=== PATIENT | female | born 1985 | race Caucasian/White ===

== ENCOUNTER 2016-09-18 22:38 | Emergency (ER) | payer SELFPAY ==
--- NOTE | ~2016-09-18 | ER ---
PATIENT'S NAME: LUDWIN NOWAK AGE: 30 Y [address] ROOM: [place] [address] LOCATION: [facility] ADMIT DATE: 09/18/2016 ER/Outpatient Report DISCHARGE DATE: 09/19/2016 FAMILY PHYSICIAN: Jad Mar MD ATTENDING PHYSICIAN: Cassandra Gonzales HISTORY OF PRESENT ILLNESS: A 30-year-old female who presents today with a chief complaint of nausea, vomiting, and diarrhea. It started this morning at 8 a.m., which is approximately 15 hours ago. She has had 5 episodes of vomiting, nonbloody, nonbilious, and 3 episodes of diarrhea, nonbloody, no mucus. She has some abdominal cramping in her like just above the umbilicus, but she says it comes and goes, feels like someone is punching her, and then it lets off, so it is coming and going. Denies eating any bad food. No recent exposure to sick people. No drinking contaminated water. No antibiotic use. She has had something like this about 3 weeks ago and she went to [facility] for this and says that she was not given anything for nausea. Currently, it is dry heaving at this time. PAST MEDICAL HISTORY: Includes asthma and obesity. PAST SURGICAL HISTORY: Includes tubal ligation, cholecystectomy, and C-sections. Last menstrual period was 09/14/2016. SOCIAL HISTORY: She smokes 4 to 5 cigarettes a day. Denies drug or alcohol use. MEDICATIONS: Please see med list. ALLERGIES: NONE. REVIEW OF SYSTEMS: Reviewed by me and negative with the exception of those discussed in HPI. PHYSICAL EXAMINATION: GENERAL: The patient is 5 feet, 4 inches, she weighs 89.6, blood pressure is 134/72, heart rate 84, respiratory rate 16, temp is 98, and O2 sats are 99% on room air. GENERAL: The patient is not in any acute distress. She looks mildly uncomfortable, but she is nontoxic, she has an emesis bag and is sort of burping, dry heaving at this time, but not actually vomiting. PATIENT'S NAME: LUDWIN NOWAK AGE: 30 Y [address] ROOM: [place] [address] LOCATION: [facility] ADMIT DATE: 09/18/2016 ER/Outpatient Report DISCHARGE DATE: 09/19/2016 FAMILY PHYSICIAN: Jad Mar MD ATTENDING PHYSICIAN: Cassandra Gonzales HEENT: Her pupils are equal and reactive to light. She is not lethargic. She answers all questions appropriately. She did walk into the ER. GCS is 15. HEART: Heart rate is regular rate and rhythm. She is not tachycardic. LUNGS: Lungs sounds are clear. ABDOMEN: She is obese, but she has no tenderness, no epigastric tenderness, no right upper quadrant tenderness, no right lower quadrant tenderness, no left lower quadrant tenderness, no left upper quadrant tenderness, no suprapubic tenderness, no epigastric tenderness, and no CVA tenderness bilaterally. She has no rebound or guarding. Slightly hyperactive bowel sounds though. SKIN: Warm, dry, and intact. EMERGENCY ROOM COURSE: We gave her Zofran, which improved her symptoms dramatically, she has no further vomiting and no crampy feeling in her belly at this time. We did check some labs. Procalcitonin is less than 0.05. She is not . CBC shows a white count of 7.2, H and H is 14.4/39.6, and platelets are 208. CMS showed sodium 142, potassium 3.5, chloride 111, CO2 24, anion gap is 10.5, glucose is 103, BUN 16, creatinine is 1.1, alk phos is 56, AST is 19, ALT is 24, GFR is 59, lipase is 137, and lactate is 1.9. Discussed this with the patient. She feels a lot better. We will send her home with a script for some Zofran. I told her to eat sort of a bland diet, try and stay hydrated, push fluids, and follow up with her doctor as needed. IMPRESSION: Nausea, vomiting, and diarrhea. MD STEWART KNIGHT/eliasl /[id number] d: 09/19/16421 t: 09/20/161953, OUTPATIENT REPORT
[2016-09-18 23:49] LABS: BASOPHIL % 0.6 %; EOSINOPHIL # 0.2 K/uL (0.0-0.5); EOSINOPHIL % 3.4 %; HEMATOCRIT 39.6 % (33.0-46.0); HEMOGLOBIN 14.4 g/dL (11.0-15.0); IMMATURE GRANULOCYTE % 0.3 %; LYMPHOCYTE # 2.2 K/uL (0.8-4.0); MCH 31.2 pg (27.0-34.0); MCHC 36.4 gm/dL (32.0-36.5); MCV 85.9 fl (83.0-98.0); MONOCYTE # 0.5 K/uL (0.0-1.0); MONOCYTE % 7.4 %; MPV 11.6 fl (9.4-12.4); NEUTROPHIL # (ANC) 4.1 K/uL (1.8-7.8); NEUTROPHIL % 57.3 %; NRBC % 0 /100WBC (0-0.00); PLATELET COUNT 208 K/uL (150-450); RBC 4.61 M/uL (3.50-5.00); RDW-CV 11.9 % (11.9-14.6); WBC 7.2 K/uL (4.0-11.0)
[2016-09-19 00:08] LABS: ALBUMIN 3.4 gm/dL (3.5-5.0); ANION GAP 10.5 (10.0-19.0); CALCIUM 8.7 mg/dL (8.5-10.5); CREATININE 1.1 mg/dL (0.5-1.1); POTASSIUM 3.5 mMol/L (3.7-5.1); TOTAL BILIRUBIN 0.9 mg/dL (0.0-1.5); TOTAL PROTEIN 6.2 g/dL (6.0-8.4)
== END 2016-09-19 00:47 | disposition disaster alternative care site (69) ==
LOC: GMED 22:38
PROVIDERS: Emergency Medicine
DX: R11.2 Nausea with vomiting, unspecified (principal); R19.7 Diarrhea, unspecified; E66.9 Obesity, unspecified; F17.210 Nicotine dependence, cigarettes, uncomplicated; J45.909 Unspecified asthma, uncomplicated; Z98.51 Tubal ligation status; Z90.49 Acquired absence of other specified parts of digestive tract; Z79.51 Long term (current) use of inhaled steroids